=== PATIENT | female | born 1975 | race Caucasian/White ===

== ENCOUNTER 2018-10-23 22:59 | Emergency (ER) | payer OTHER ==
[2018-10-23] MEDS ORDERED: ONDANSETRON 4 MG/2 ML VIAL IVP STA (23:22)
[2018-10-23] MEDS ORDERED: SODIUM CHLORIDE 0.9% 1,000 ML IV ONE (23:22)
[2018-10-23 23:39] LABS: BASOPHILS # (AUTO) 0.1 10^3/uL (0.0-0.1); BASOPHILS % (AUTO) 0.6 %; EOSINOPHILS # (AUTO) 0.1 10^3/uL (0.0-0.7); EOSINOPHILS % (AUTO) 0.4 %; LYMPHOCYTES # (AUTO) 2.7 10^3/uL (1.5-3.5); LYMPHOCYTES % (AUTO) 19.3 %; MEAN CORPUSCULAR HEMOGLOBIN 25.8 pg (27.0-31.0); MEAN CORPUSCULAR HGB CONC 30.9 g/dL (32.0-36.0); MEAN CORPUSCULAR VOLUME 83.4 fL (81.0-99.0); MEAN PLATELET VOLUME 10.8 fL (7.9-10.8); MONOCYTES # (AUTO) 1.4 10^3/uL (0.0-1.0); MONOCYTES % (AUTO) 9.9 %; NEUTROPHILS # (AUTO) 9.7 10^3/uL (1.5-6.6); NEUTROPHILS % (AUTO) 69.3 %; PLT - PLATELET COUNT 444 10^3/uL (130-450); RED BLOOD COUNT 4.65 10^6/uL (4.20-5.40); RED CELL DISTRIBUTION WIDTH 13.7 % (12.0-15.0)
[2018-10-23 23:52] LABS: GLUCOSE, URINE (UA) NEGATIVE (NEGATIVE); KETONES,URINE (UA) TRACE mg/dL (NEGATIVE); LEUKOCYTE ESTERASE, URINE TRACE (NEGATIVE); NITRITE,URINE NEGATIVE (NEGATIVE); OCCULT BLOOD,URINE TRACE-LYSE (NEGATIVE); PH,URINE 5.5 PH (5.0-7.5); PROTEIN,URINE 30 mg/dL (NEGATIVE); UROBILINOGEN,URINE 0.2 (NORMAL) E.U./dL (NORMAL)
[2018-10-23] MEDS ORDERED: PROMETHAZINE INJ 25 MG in SODIUM CHLORIDE 0.9% 50 ML IV STA (23:55)
[2018-10-23 23:56] LABS: CLARITY,URINE HAZY (CLEAR); HCG UR QUAL NEGATIVE
[2018-10-24 00:01] LABS: BILIRUBIN,URINE NEGATIVE (NEGATIVE); ICTOTEST,URINE NEGATIVE
[2018-10-24 00:03] LABS: BACTERIA,URINE Few /HPF (None Seen); CRYSTALS,URINE 26-50 Ca Oxalate /LPF; RBC,URINE 0-5 /HPF (0-5); SQUAMOUS EPITHELIAL CELL,UR MANY Squamous (<= Few)
[2018-10-24 00:04] LABS: AMPHETAMINE SCREEN,URINE NEGATIVE (NEGATIVE); BENZODIAZEPINES SCREEN, URINE POSITIVE (NEGATIVE); COCAINE SCREEN URINE NEGATIVE (NEGATIVE); METHADONE SCREEN, URINE NEGATIVE (NEGATIVE); METHAMPHETAMINES SCREEN, URINE NEGATIVE (NEGATIVE); MUDS CUTOFF CONCENTRATIONS CUTOFF CONC BELOW:; OPIATE SCREEN, URINE NEGATIVE (NEGATIVE); OXYCODONE SCREEN, URINE NEGATIVE (NEGATIVE); PROPOXYPHENE SCREEN, URINE POSITIVE (NEGATIVE); TRICYCLIC ANTIDEPRESSANT,URINE NEGATIVE (NEGATIVE)
[2018-10-24 00:07] LABS: ALBUMIN 4.4 g/dL (3.2-5.5); ALBUMIN/GLOBULIN RATIO 1.1 (1.0-2.2); BILIRUBIN,TOTAL 0.7 mg/dL (0.2-1.0); CALCIUM 10.9 mg/dL (8.5-10.3); TOTAL PROTEIN 8.3 g/dL (6.7-8.2)
[2018-10-24 00:08] LABS: VBG PCO2 31.3 mmHg (41-51); VBG PH 7.447 (7.31-7.41); VBG PO2 87.6 mmHg (25-47)
[2018-10-24 00:09] LABS: VBG TOTAL CO2 22.1 mmol/L (24-29)
[2018-10-24] MEDS ORDERED: SODIUM CHLORIDE 0.9% 1,000 ML IV ONE ×2 (00:51→02:40)
[2018-10-24] MEDS ORDERED: ONDANSETRON 4 MG/2 ML VIAL IVP STA ×2 (00:51→03:10)
[2018-10-24] MEDS ORDERED: HYDROmorphone 1 MG/ML CARPUJECT IVP STA ×2 (00:51→04:44)
--- NOTE | 2018-10-24 00:54 | ED Physician Documentation ---
PD HPI NVD - Stated complaint Stated Complaint: BODY ACHE/SWEATING - Chief complaint Chief Complaint: Abd Pain - History obtained from History obtained from: Patient - History of Present Illness Timing - onset: How many days ago (5) Timing - duration: Days (5) Timing - details: Gradual onset, Still present Associated symptoms: Fever, Loss of appetite Contributing factors: Travel Improved by: Meds (antibiotic), Other (fluids) Worsened by: Other (travel) Similar symptoms before: Diagnosis (UTI with dehydration) Recently seen: Emergency Dept (In [place]) - Additonal information Additional information: 43-year-old female with a history of arthritis who is on methotrexate has a history of cyclical vomiting and she most recently had an episode of vomiting an d urinary tract infection 5 days ago while in [place]. She was seen in the emergency department they are treated with intravenous fluids and antibiotic and she felt she was improving. She then took off from [place] to drive over to [facility] and she became ill in route had to stop in [place] overnight and then pushed through the next day again vomiting the entire time. She is now arrived to her destination she has dropped her son off at her [id number] and she is here in the emergency department with persistent nausea and vomiting she feels pain throughout her entire body. She feels that she is significantly dehydrated. She remembers the last hospitalization for cyclical vomiting that was intractable was about 4 years ago. She has tried Haldol previously without much success and she is used Ativan in addition to pain medication and antiemetic with some success when the level of stress was the trigger. Review of Systems Constitutional: reports: Chills, Fatigue, Sweats Eyes: denies: Decreased vision Ears: denies: Ear pain Nose: denies: Congestion Throat: denies: Sore throat Cardiac: denies: Chest pain / pressure, Palpitations Respiratory: denies: Dyspnea, Cough GI: reports: Abdominal Pain, Nausea, Vomiting : denies: Dysuria, Frequency Skin: denies: Rash Musculoskeletal: reports: Back pain Neurologic: reports: Generalized weakness. denies: Focal weakness, Numbness PD PAST MEDICAL HISTORY - Past Medical History Past Medical History: Yes GI: GERD Musculoskeletal: Rheumatoid arthritis Other Past Medical History: Chronic pain from neck fx; Alcoholism - Past Surgical History Past Surgical History: Yes - Present Medications Home Medications: Ambulatory Orders Medication Instructions Recorded Confirmed Methotrexate Sodium/Pf IM 10/23/18 [Methotrexate 25 mg/ml Vial] Ranitidine HCl [Acid Electrical Repairer] 1 tab PO DAILY 10/23/18 10/23/18 Promethazine [Phenergan] 25 mg PO Q6H PRN #10 tab 10/24/18 - Allergies Allergies/Adverse Reactions: Allergies Allergy/AdvReac Type Severity Reaction Status Date / Time No Known Drug Allergies Allergy Verified 10/23/18 23:34 - Social History Does the pt smoke?: No Smoking Status: Never smoker Does the pt drink ETOH?: No Does the pt have substance abuse?: No - Immunizations Immunizations are current?: Yes PD ED PE NORMAL - Vitals Vital signs reviewed: Yes (tachy and hypertensive) - General General: Alert and oriented X 3, Well developed/nourished, Other (thin 43 y/o female appears pale, is moaning in pain and has parched mucous membranes ) - HEENT HEENT: Atraumatic, PERRL, EOMI, Other (parched mucous membranes ) - Neck Neck: Supple, no meningeal sign, No bony TTP - Cardiac Cardiac: No murmur, Other (tachy to 120) - Respiratory Respiratory: No respiratory distress, Clear bilaterally - Abdomen Abdomen: Soft, Other (mild general tenderness without gaurding or rebound. ) - Back Back: No CVA TTP, No spinal TTP - Derm Derm: Normal color, Warm and dry, No rash - Extremities Extremities: No deformity, No edema, No calf tenderness / cord - Neuro Neuro: Alert and oriented X 3, market developer 2-12 intact, No motor deficit, No sensory deficit, Normal speech Eye Opening: Spontaneous Motor: Obeys Commands Verbal: Oriented GCS Score: 15 - Psych Psych: Other (mood is defeated and the affect is flat. ) Results - Vitals Vitals: Vital Signs - 24 hr 10/23/18 10/23/18 10/24/18 23:06 23:44 00:03 Temperature 37.3 C Heart Rate 101 H 65 71 Respiratory 24 11 L 18 Rate Blood Pressure 130/110 H 93/65 132/74 H O2 Saturation 96 96 98 10/24/18 10/24/18 10/24/18 00:30 00:36 01:16 Temperature Heart Rate 152 H 79 75 Respiratory 36 H 20 16 Rate Blood Pressure 132/74 H 122/79 140/67 H O2 Saturation 97 97 96 10/24/18 10/24/18 10/24/18 03:00 04:08 04:28 Temperature Heart Rate 67 61 66 Respiratory 18 20 18 Rate Blood Pressure 136/76 H 126/76 126/76 O2 Saturation 98 100 98 Oxygen O2 Source Room air - Labs Labs: Laboratory Tests 10/23/18 10/23/18 10/23/18 23:30 23:30 23:30 WBC 14.0 H RBC 4.65 Hgb 12.0 Hct 38.8 MCV 83.4 MCH 25.8 L MCHC 30.9 L RDW 13.7 Plt Count 444 MPV 10.8 Neut # (Auto) 9.7 H Lymph # (Auto) 2.7 Luce # (Auto) 1.4 H Eos # (Auto) 0.1 Baso # (Auto) 0.1 Absolute Nucleated RBC 0.00 Nucleated RBC % 0.0 VBG pH VBG pCO2 VBG pO2 VBG HCO3 VBG Total CO2 VBG O2 Saturation VBG Base Excess Sodium Potassium Chloride Carbon Dioxide Anion Gap BUN Creatinine Estimated GFR (MDRD) Glucose Lactic Acid Calcium Total Bilirubin AST ALT Alkaline Phosphatase Total Protein Albumin Globulin Albumin/Globulin Ratio Lipase Urine Color YELLOW Urine Clarity HAZY Urine pH 5.5 Ur Specific [place] >=1.030 H Urine Protein 30 H Urine Glucose (UA) NEGATIVE Urine Ketones TRACE Urine Occult Blood TRACE-LYSE Urine Nitrite NEGATIVE Urine Bilirubin NEGATIVE Urine Urobilinogen 0.2 (NORMAL) Ur Leukocyte Esterase TRACE H Urine RBC 0-5 Urine WBC 4-5 Ur Squamous Epith Cells MANY Squamous H Urine Crystals 26-50 Ca Oxalate Urine Bacteria Few Ur Microscopic Review INDICATED Urine Culture Comments NOT INDICATED Urine HCG, Qual NEGATIVE Urine Opiates Screen NEGATIVE Ur Oxycodone Screen NEGATIVE Urine Methadone Screen NEGATIVE Ur Propoxyphene Screen POSITIVE H Ur Barbiturates Screen NEGATIVE Ur Tricyclics Screen NEGATIVE Ur Phencyclidine Scrn NEGATIVE Ur Amphetamine Screen NEGATIVE U Methamphetamines Scrn NEGATIVE U Benzodiazepines Scrn POSITIVE H Urine Cocaine Screen NEGATIVE U Cannabinoids Screen POSITIVE H 10/23/18 10/23/18 10/23/18 23:40 23:40 23:40 WBC RBC Hgb Hct MCV MCH MCHC RDW Plt Count MPV Neut # (Auto) Lymph # (Auto) Luce # (Auto) Eos # (Auto) Baso # (Auto) Absolute Nucleated RBC Nucleated RBC % VBG pH 7.447 H VBG pCO2 31.3 L VBG pO2 87.6 H VBG HCO3 21.1 L VBG Total CO2 22.1 L VBG O2 Saturation 96.8 H VBG Base Excess -2.0 Sodium 140 Potassium 3.1 L Chloride 101 Carbon Dioxide 24 Anion Gap 15.0 H BUN 27 H Creatinine 1.0 Estimated GFR (MDRD) 60 L Glucose 173 H Lactic Acid 2.6 H Calcium 10.9 H Total Bilirubin 0.7 AST 36 ALT 33 Alkaline Phosphatase 68 Total Protein 8.3 H Albumin 4.4 Globulin 3.9 Albumin/Globulin Ratio 1.1 Lipase 23 Urine Color Urine Clarity Urine pH Ur Specific [place] Urine Protein Urine Glucose (UA) Urine Ketones Urine Occult Blood Urine Nitrite Urine Bilirubin Urine Urobilinogen Ur Leukocyte Esterase Urine RBC Urine WBC Ur Squamous Epith Cells Urine Crystals Urine Bacteria Ur Microscopic Review Urine Culture Comments Urine HCG, Qual Urine Opiates Screen Ur Oxycodone Screen Urine Methadone Screen Ur Propoxyphene Screen Ur Barbiturates Screen Ur Tricyclics Screen Ur Phencyclidine Scrn Ur Amphetamine Screen U Methamphetamines Scrn U Benzodiazepines Scrn Urine Cocaine Screen U Cannabinoids Screen Procedures - IVC sono (time) 0048 Bedside IVC sono: IVC measures (cm) (0.83), IVC collapsed c insp (cm) (compl ete), Significant dehydration (this measurement is taken after one liter is infused and indicates a deficit of 2 liters remainding.) 0238 Bedside IVC sono: IVC measures (cm) (1.27), Dehydration (est 1 liter deficit after 2 are in) PD MEDICAL DECISION MAKING - ED course Complexity details: reviewed results, re-evaluated patient, considered differential, d/w patient ED course: 43-year-old female with history of cyclical vomiting who is on methotrexate for arthritis is developed vomiting and has pushed through with a road trip to [facility]. She states that this was a necessary trip as her grandmother is ill and she is bring her 10-year-old son to see her. Patient is found to be profoundly dehydrated and fluid resuscitation is initiated with saline. She received 3 L of saline Zofran Phenergan and Dilaudid. She has the best improvement with Phenergan and Dilaudid and a second dose is administered with anticipation of keeping the patient out of the hospital. Departure - Departure Disposition: 01 Home, Self Care Clinical Impression: Cyclical vomiting with nausea Qualifiers: Vomiting Intractability: non-intractable Qualified Code(s): G43.A0 - Cyclical vomiting, not intractable Condition: Stable Instructions: ED Nausea Vomiting Follow-Up: Your, doctor [Other] Prescriptions: Promethazine [Phenergan] 25 mg PO Q6H PRN #10 tab PRN Reason: Nausea / Vomiting
[2018-10-24] MEDS ORDERED: PROMETHAZINE INJ 25 MG in SODIUM CHLORIDE 0.9% 50 ML IV STA (04:44)
[2018-10-24 05:35] VITALS: BP 128/86
== END 2018-10-24 05:38 | disposition home or self-care (01) ==
LOC: ED 22:59
DX: G43.A0 Cyclical vomiting, in migraine, not intractable (principal); E86.0 Dehydration; M06.9 Rheumatoid arthritis, unspecified; Z79.899 Other long term (current) drug therapy; K21.9 Gastro-esophageal reflux disease without esophagitis
CPT/HCPCS: 36415; 80053; 81001; 81025; 82803; 83605; 83690; 85025; 87040; 96361; 96365; 96366; 96375; 96376; 99284; J1170; J7040; 80306; 81003; 87086